=== PATIENT | female | born 1990 | race Caucasian/White ===

== ENCOUNTER 2016-12-01 20:37 | Emergency (ER) | payer OTHER ==
[2016-12-01] MEDS ORDERED: diphenhydrAMINE INJ 50MG/ML VIAL (J1200) As Ordered ONE (20:58)
[2016-12-01] MEDS ORDERED: dexameTHASONE 20 MG/5 ML VIAL (J1100) As Ordered ONE ×2 (20:58→21:02)
--- NOTE | 2016-12-01 23:04 | EDDOCDS ---
Nurse's Notes [facility] Name: Shanel Kumar Age: 26 yrs Sex: Female : 1990 Arrival Date: 12/01/2016 Time: 20:37 Bed 8 Private MD: NO PRIMARY PHYSICIAN, . Diagnosis: Allergy, unspecified Presentation: 12/01 20:45 Presenting complaint: Patient states: Eyes started itching around 3pm then started to ko2 swell. Then pt noticed hives on arms, neck and side of abdomen. Pt states her chest feels a little heavy a this time. Pt states she hasn't had any different food and hasn't changed laundry detergent. The only new thing she has used is a new body wash but has been using it for a week with no problem. Onset: The symptoms/episode began/occurred gradually. This patient has not experienced a previous allergic reaction. Anaphylaxis evaluation, the patient reports or I have noted the following symptoms which indicate a significant risk of anaphylaxis: lump in the throat which may suggest laryngeal edema. Adult Sepsis Screening: The patient does not have new or worsening altered mentation. Patient's respiratory rate is less than 22. Systolic blood pressure is greater than 100. Patient has a qSOFA score of 0- Negative Sepsis Screen. Suicide/Homicide risk assessment- the patient denies having any suicidal and/or homicidal ideations and does not present with any other emotional, behavioral or mental health complaints. Status: Patient is not a tax services manager or dependent. Transition of care: patient was not received from another setting of care. Care prior to arrival: Medications administered prior to arrival: Pt took two benadryl liquid tabs about 8 pm. 20:45 Acuity: ELLEN Level 3 ko2 20:45 Method Of Arrival: Walkin/Carried/Asstd ko2 Triage Assessment: 20:52 General: Appears in no apparent distress, Behavior is appropriate for age, cooperative. ko2 Pain: Denies pain. HIV screening NA for this visit Offered previously. The patient is triaged at the bedside. See Assessment in Nurses Notes section of ED record. Neurological: Level of Consciousness is awake, alert, Oriented to person, place, time. EENT: Eyes Lid(s) bilateral eye lids swollen. Cardiovascular: Rhythm is sinus rhythm No ectopy. Chest pain is denied. Respiratory: Airway is patent Respiratory effort is even, unlabored, Respiratory pattern is regular, Reports lump in throat feeling. Derm: Hives on right arm, left neck line and left side of abdomen. Musculoskeletal: Range of motion intact in all extremities. [facility]: 23:02 LMP N/A - control method ko2 Historical: - Allergies: No known drug Allergies; - Home Meds: 1. none - PMHx: none; - PSHx: none; - Social history: Smoking status: Patient uses tobacco products, heavy tobacco smoker. No barriers to communication noted, The patient speaks fluent Colombian, Speaks appropriately for age. - Family history: Not pertinent. - : The pt / caregiver states he / she is not on anticoagulants. Home medication list is obtained from the patient. - Exposure Risk Screening:: None identified. Screenin:07 Screening information is obtained from the patient. Fall risk: No risks identified. ko2 Assistance ADL's: requires no assistance with activities of daily living. Abuse/DV Screen: The patient / caregiver reports he/she is: not in a situation that causes fear, pain or injury. Nutritional screening: No deficits noted. Advance Directives: Currently, there is no health care proxy. There is no active DNR order. There is no living will. There is no Power of Readers' Advisory Service Librarian. home support is adequate. Assessment: 20:54 General: See triage assessment. ko2 22:06 General: pt states she can still feel the lump in her throat but can open her right eye ko2 lid more. No new hives noted. Respirations unlabored and even. no concerns at this time.. 22:49 General: Appears in no apparent distress, Behavior is cooperative. Pain: Denies pain. ko2 Neurological: Level of Consciousness is awake, alert. Respiratory: Airway is patent Respiratory effort is even, unlabored, Breath sounds are clear bilaterally. Musculoskeletal: Range of motion intact in all extremities. Vital Signs: 20:39 BP 144 / 86; Pulse 93; Resp 18 S; Temp 98.4(O); Pulse Ox 99% on R/A; Weight 97.52 kg gr2 (R); Height 5 ft. 4 in. (162.56 cm) (R); Pain 2/10; 22:51 BP 129 / 76; Pulse 68; Resp 18; Temp 97.2(TE); Pulse Ox 100% on R/A; rafaela 20:39 Body Mass Index 36.90 (97.52 kg, 162.56 cm) gr2 Vitals: 20:39 Log In Time: December 01, 2016 at 20:39. RN notified that patient meets Red Flag gr2 criteria. ED Course: 20:38 Patient visited by Barak Hartman. gr2 20:38 NO PRIMARY PHYSICIAN, . is Private Physician. gr2 20:38 Patient moved to Waiting gr2 20:41 Zeny Canales RN is Primary Nurse. cjh 20:41 Patient moved to 8 cj 20:42 Patient visited by Barak Hartman. gr2 20:45 Inserted saline lock: 20 gauge in left antecubital area. ko2 20:48 Dwayne Kenny DO is Attending Physician. cs11 20:48 Patient visited by Dwayne Kenny DO. cs11 20:50 Triage Initiated ko2 21:09 Patient visited by Zeny Canales RN. ko2 21:36 [facility] Payment Agreement was scanned into [employer] and attached to record. gb 22:04 Patient visited by Zeny Canales RN. ko2 22:49 Patient visited by Zeny Canales RN. ko2 22:49 Discontinued lock intact, bleeding controlled, pressure dressing applied, No ko2 redness/swelling at site. 22:51 Patient visited by Iveth Shelby PCA. rafaela 23:01 The patient / caregiver is instructed regarding the plan of care and ED course. ko2 23:01 No procedures done that require assistance. ko2 Administered Medications: 20:58 Not Given (..): diphenhydrAMINE 50 mg IVP once cs11 21:08 Drug: diphenhydrAMINE 25 mg [diphenhydramine 50 mg/mL injection solution (0.5 mL)] ko2 Route: IVP; Site: left antecubital; 21:09 Drug: Dexamethasone 12 mg [dexamethasone 4 mg/mL injection solution] Route: IV; Rate: ko2 bolus; Site: left antecubital; Order Results: There are currently no results for this order. Outcome: 22:49 Discharge ordered by Provider. cs11 23:01 Discharge Assessment: Patient awake, alert and oriented x 3. No cognitive and/or ko2 functional deficits noted. Patient verbalized understanding of disposition instructions. patient administered narcotics - no. The following High Risk Discharge criteria are identified: None. Discharged to home via medicaid cab. Condition: stable. Discharge instructions given to patient, Instructed on discharge instructions, follow up and referral plans. medication usage, Demonstrated understanding of instructions, medications, Pt was receptive of discharge instructions/ teaching. Prescriptions given X 1. No special radiology studies were completed. Property sent home with patient. 23:03 Patient left the ED. ko2 Signatures: Nathalie San, Reg Reg gb Iveth Shelby, SIERRA SLIVER MACHINE OPERATOR rafaela Lexi Hall,RN RN [facility] Dwayne Kenny DO DO cs11 Barak Hartman gr2 Zeny Canales,RN RN ko2 MTDD
--- NOTE | 2016-12-01 23:04 | EDDOCDS ---
Physician Documentation [facility] Name: Shanel Kumar Age: 26 yrs Sex: Female : 1990 Arrival Date: 12/01/2016 Time: 20:37 Bed 8 Private MD: NO PRIMARY PHYSICIAN, . Disposition: 12/01/16 22:49 Discharged to Home/Self Care. Impression: Allergy, unspecified. - Condition is Stable. - Prescriptions for Prednisone 20 mg Oral Tablet - take 3 tablets by ORAL route once daily for 3 days; 9 tablet. - Medication Reconciliation, Local Pharmacy Hours form. - Follow up: Private Physician; When: Call to arrange an appointment; Reason: Recheck today's complaints. - Problem is new. - Symptoms have improved. Historical: - Allergies: No known drug Allergies; - Home Meds: 1. none - PMHx: none; - PSHx: none; - Social history: Smoking status: Patient uses tobacco products, heavy tobacco smoker. No barriers to communication noted, The patient speaks fluent Trinidadian, Speaks appropriately for age. - Family history: Not pertinent. - : The pt / caregiver states he / she is not on anticoagulants. Home medication list is obtained from the patient. - Exposure Risk Screening:: None identified. CAR HOP: 12/01 23:02 LMP N/A - control method ko2 Vital Signs: 20:39 BP 144 / 86; Pulse 93; Resp 18 S; Temp 98.4(O); Pulse Ox 99% on R/A; Weight 97.52 kg / gr2 214.99 lbs (R); Height 5 ft. 4 in. (162.56 cm) (R); Pain 2/10; 22:51 BP 129 / 76; Pulse 68; Resp 18; Temp 97.2(TE); Pulse Ox 100% on R/A; rafaela 20:39 Body Mass Index 36.90 (97.52 kg, 162.56 cm) gr2 MDM: 20:53 IV Saline Lock ordered. cs11 20:53 diphenhydrAMINE 50 mg IVP once ordered. cs11 20:53 Dexamethasone 12 mg IV at bolus once ordered. cs11 20:58 diphenhydrAMINE 25 mg IVP once ordered. cs11 20:59 Financial registration complete. gb 21:36 [facility] Payment Agreement was scanned into [employer] and attached to record. gb Administered Medications: 20:58 Not Given (..): diphenhydrAMINE 50 mg IVP once cs11 21:08 Drug: diphenhydrAMINE 25 mg [diphenhydramine 50 mg/mL injection solution (0.5 mL)] ko2 Route: IVP; Site: left antecubital; 21:09 Drug: Dexamethasone 12 mg [dexamethasone 4 mg/mL injection solution] Route: IV; Rate: ko2 bolus; Site: left antecubital; Signatures: Nathalie San, Reg Reg Dwayne Nichols DO DO cs11 Zeny CanalesRN RN ko2 The chart was reviewed and I authenticate all verbal orders and agree with the evaluation and treatment provided.Attachments: 21:36 [facility] [place] Payment Agreement gb MTDD
--- NOTE | 2016-12-04 00:03 | EDDOCDS ---
Physician Documentation [facility] Name: Shanel Kumar Age: 26 yrs Sex: Female : 1990 Arrival Date: 12/01/2016 Time: 20:37 Bed 8 Private MD: NO PRIMARY PHYSICIAN, . Disposition: 12/01/16 22:49 Discharged to Home/Self Care. Impression: Allergy, unspecified. - Condition is Stable. - Prescriptions for Prednisone 20 mg Oral Tablet - take 3 tablets by ORAL route once daily for 3 days; 9 tablet. - Medication Reconciliation, Local Pharmacy Hours form. - Follow up: Private Physician; When: Call to arrange an appointment; Reason: Recheck today's complaints. - Problem is new. - Symptoms have improved. Historical: - Allergies: No known drug Allergies; - Home Meds: 1. none - PMHx: none; - PSHx: none; - Social history: Smoking status: Patient uses tobacco products, heavy tobacco smoker. No barriers to communication noted, The patient speaks fluent Montenegrin, Speaks appropriately for age. - Family history: Not pertinent. - : The pt / caregiver states he / she is not on anticoagulants. Home medication list is obtained from the patient. - Exposure Risk Screening:: None identified. 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 4 in. (162.56 cm) (R); Pain 2/10; 22:51 BP 129 / 76; Pulse 68; Resp 18; Temp 97.2(TE); Pulse Ox 100% on R/A; rafaela 20:39 Body Mass Index 36.90 (97.52 kg, 162.56 cm) gr2 MDM: 20:53 IV Saline Lock ordered. cs11 20:53 diphenhydrAMINE 50 mg IVP once ordered. cs11 20:53 Dexamethasone 12 mg IV at bolus once ordered. cs11 20:58 diphenhydrAMINE 25 mg IVP once ordered. cs11 20:59 Financial registration complete. gb 21:36 [facility] Payment Agreement was scanned into [employer] and attached to record. gb 12/02 12:29 T-Sheet-- Draft Copy was scanned into [employer] and attached to record. gb Administered Medications: 12/01 20:58 Not Given (..): diphenhydrAMINE 50 mg IVP once cs11 21:08 Drug: diphenhydrAMINE 25 mg [diphenhydramine 50 mg/mL injection solution (0.5 mL)] ko2 Route: IVP; Site: left antecubital; 21:09 Drug: Dexamethasone 12 mg [dexamethasone 4 mg/mL injection solution] Route: IV; Rate: ko2 bolus; Site: left antecubital; Signatures: Nathalie San, Reg Reg Dwayne Nihcols DO DO cs11 Zeny Canales RN RN ko2 The chart was reviewed and I authenticate all verbal orders and agree with the evaluation and treatment provided.Attachments: 21:36 [facility] [place] Payment Agreement gb 12/02 12:29 T-Sheet-- Draft Copy gb Chart Complete MTDD
--- NOTE | 2016-12-04 00:03 | EDDOCDS ---
Physician Documentation [facility] Name: Shanel Kumar Age: 26 yrs Sex: Female : 1990 Arrival Date: 12/01/2016 Time: 20:37 Bed 8 Private MD: NO PRIMARY PHYSICIAN, . Disposition: 12/01/16 22:49 Discharged to Home/Self Care. Impression: Allergy, unspecified. - Condition is Stable. - Prescriptions for Prednisone 20 mg Oral Tablet - take 3 tablets by ORAL route once daily for 3 days; 9 tablet. - Medication Reconciliation, Local Pharmacy Hours form. - Follow up: Private Physician; When: Call to arrange an appointment; Reason: Recheck today's complaints. - Problem is new. - Symptoms have improved. Historical: - Allergies: No known drug Allergies; - Home Meds: 1. none - PMHx: none; - PSHx: none; - Social history: Smoking status: Patient uses tobacco products, heavy tobacco smoker. No barriers to communication noted, The patient speaks fluent Filipino, Speaks appropriately for age. - Family history: Not pertinent. - : The pt / caregiver states he / she is not on anticoagulants. Home medication list is obtained from the patient. - Exposure Risk Screening:: None identified. COOKER PIE FILLING: 12/01 23:02 LMP N/A - control method ko2 Vital Signs: 20:39 BP 144 / 86; Pulse 93; Resp 18 S; Temp 98.4(O); Pulse Ox 99% on R/A; Weight 97.52 kg / gr2 214.99 lbs (R); Height 5 ft. 4 in. (162.56 cm) (R); Pain 2/10; 22:51 BP 129 / 76; Pulse 68; Resp 18; Temp 97.2(TE); Pulse Ox 100% on R/A; rafaela 20:39 Body Mass Index 36.90 (97.52 kg, 162.56 cm) gr2 MDM: 20:53 IV Saline Lock ordered. cs11 20:53 diphenhydrAMINE 50 mg IVP once ordered. cs11 20:53 Dexamethasone 12 mg IV at bolus once ordered. cs11 20:58 diphenhydrAMINE 25 mg IVP once ordered. cs11 20:59 Financial registration complete. gb 21:36 [facility] Payment Agreement was scanned into [employer] and attached to record. gb 12/02 12:29 T-Sheet-- Draft Copy was scanned into [employer] and attached to record. gb Administered Medications: 12/01 20:58 Not Given (..): diphenhydrAMINE 50 mg IVP once cs11 21:08 Drug: diphenhydrAMINE 25 mg [diphenhydramine 50 mg/mL injection solution (0.5 mL)] ko2 Route: IVP; Site: left antecubital; 21:09 Drug: Dexamethasone 12 mg [dexamethasone 4 mg/mL injection solution] Route: IV; Rate: ko2 bolus; Site: left antecubital; Signatures: Nathalie San, Reg Reg Dwayne Nichols DO DO cs11 Zeny Canales RN RN ko2 The chart was reviewed and I authenticate all verbal orders and agree with the evaluation and treatment provided.Attachments: 21:36 [facility] [place] Payment Agreement gb 12/02 12:29 T-Sheet-- Draft Copy gb Chart Complete MTDD
--- NOTE | 2016-12-04 00:03 | EDDOCDS ---
Nurse's Notes [facility] Name: Shanel Kumar Age: 26 yrs Sex: Female : 1990 Arrival Date: 12/01/2016 Time: 20:37 Bed 8 Private MD: NO PRIMARY PHYSICIAN, . Diagnosis: Allergy, unspecified Presentation: 12/01 20:45 Presenting complaint: Patient states: Eyes started itching around 3pm then started to ko2 swell. Then pt noticed hives on arms, neck and side of abdomen. Pt states her chest feels a little heavy a this time. Pt states she hasn't had any different food and hasn't changed laundry detergent. The only new thing she has used is a new body wash but has been using it for a week with no problem. Onset: The symptoms/episode began/occurred gradually. This patient has not experienced a previous allergic reaction. Anaphylaxis evaluation, the patient reports or I have noted the following symptoms which indicate a significant risk of anaphylaxis: lump in the throat which may suggest laryngeal edema. Adult Sepsis Screening: The patient does not have new or worsening altered mentation. Patient's respiratory rate is less than 22. Systolic blood pressure is greater than 100. Patient has a qSOFA score of 0- Negative Sepsis Screen. Suicide/Homicide risk assessment- the patient denies having any suicidal and/or homicidal ideations and does not present with any other emotional, behavioral or mental health complaints. Status: Patient is not a wind field service manager or dependent. Transition of care: patient was not received from another setting of care. Care prior to arrival: Medications administered prior to arrival: Pt took two benadryl liquid tabs about 8 pm. 20:45 Acuity: ELLEN Level 3 ko2 20:45 Method Of Arrival: Walkin/Carried/Asstd ko2 Triage Assessment: 20:52 General: Appears in no apparent distress, Behavior is appropriate for age, cooperative. ko2 Pain: Denies pain. HIV screening NA for this visit Offered previously. The patient is triaged at the bedside. See Assessment in Nurses Notes section of ED record. Neurological: Level of Consciousness is awake, alert, Oriented to person, place, time. EENT: Eyes Lid(s) bilateral eye lids swollen. Cardiovascular: Rhythm is sinus rhythm No ectopy. Chest pain is denied. Respiratory: Airway is patent Respiratory effort is even, unlabored, Respiratory pattern is regular, Reports lump in throat feeling. Derm: Hives on right arm, left neck line and left side of abdomen. Musculoskeletal: Range of motion intact in all extremities. [facility]: 23:02 LMP N/A - control method ko2 Historical: - Allergies: No known drug Allergies; - Home Meds: 1. none - PMHx: none; - PSHx: none; - Social history: Smoking status: Patient uses tobacco products, heavy tobacco smoker. No barriers to communication noted, The patient speaks fluent Bermudian, Speaks appropriately for age. - Family history: Not pertinent. - : The pt / caregiver states he / she is not on anticoagulants. Home medication list is obtained from the patient. - Exposure Risk Screening:: None identified. Screenin:07 Screening information is obtained from the patient. Fall risk: No risks identified. ko2 Assistance ADL's: requires no assistance with activities of daily living. Abuse/DV Screen: The patient / caregiver reports he/she is: not in a situation that causes fear, pain or injury. Nutritional screening: No deficits noted. Advance Directives: Currently, there is no health care proxy. There is no active DNR order. There is no living will. There is no Power of Integrative Medicine Physician. home support is adequate. Assessment: 20:54 General: See triage assessment. ko2 22:06 General: pt states she can still feel the lump in her throat but can open her right eye ko2 lid more. No new hives noted. Respirations unlabored and even. no concerns at this time.. 22:49 General: Appears in no apparent distress, Behavior is cooperative. Pain: Denies pain. ko2 Neurological: Level of Consciousness is awake, alert. Respiratory: Airway is patent Respiratory effort is even, unlabored, Breath sounds are clear bilaterally. Musculoskeletal: Range of motion intact in all extremities. Vital Signs: 20:39 BP 144 / 86; Pulse 93; Resp 18 S; Temp 98.4(O); Pulse Ox 99% on R/A; Weight 97.52 kg gr2 (R); Height 5 ft. 4 in. (162.56 cm) (R); Pain 2/10; 22:51 BP 129 / 76; Pulse 68; Resp 18; Temp 97.2(TE); Pulse Ox 100% on R/A; rafaela 20:39 Body Mass Index 36.90 (97.52 kg, 162.56 cm) gr2 Vitals: 20:39 Log In Time: December 01, 2016 at 20:39. RN notified that patient meets Red Flag gr2 criteria. ED Course: 20:38 Patient visited by Barak Hartman. gr2 20:38 NO PRIMARY PHYSICIAN, . is Private Physician. gr2 20:38 Patient moved to Waiting gr2 20:41 Zeny Canales RN is Primary Nurse. cjh 20:41 Patient moved to 8 cj 20:42 Patient visited by Barak Hartman. gr2 20:45 Inserted saline lock: 20 gauge in left antecubital area. ko2 20:48 Dwayne Kenny DO is Attending Physician. cs11 20:48 Patient visited by Dwayne Kenny DO. cs11 20:50 Triage Initiated ko2 21:09 Patient visited by Zeny Canales RN. ko2 21:36 [facility] Payment Agreement was scanned into [employer] and attached to record. gb 22:04 Patient visited by Zeny Canales RN. ko2 22:49 Patient visited by Zeny Canales RN. ko2 22:49 Discontinued lock intact, bleeding controlled, pressure dressing applied, No ko2 redness/swelling at site. 22:51 Patient visited by Iveth Shelby PCA. rafaela 23:01 The patient / caregiver is instructed regarding the plan of care and ED course. ko2 23:01 No procedures done that require assistance. ko2 12/02 12:29 T-Sheet-- Draft Copy was scanned into [employer] and attached to record. gb Administered Medications: 12/01 20:58 Not Given (..): diphenhydrAMINE 50 mg IVP once cs11 21:08 Drug: diphenhydrAMINE 25 mg [diphenhydramine 50 mg/mL injection solution (0.5 mL)] ko2 Route: IVP; Site: left antecubital; 21:09 Drug: Dexamethasone 12 mg [dexamethasone 4 mg/mL injection solution] Route: IV; Rate: ko2 bolus; Site: left antecubital; Order Results: There are currently no results for this order. Outcome: 22:49 Discharge ordered by Provider. cs11 23:01 Discharge Assessment: Patient awake, alert and oriented x 3. No cognitive and/or ko2 functional deficits noted. Patient verbalized understanding of disposition instructions. patient administered narcotics - no. The following High Risk Discharge criteria are identified: None. Discharged to home via medicaid cab. Condition: stable. Discharge instructions given to patient, Instructed on discharge instructions, follow up and referral plans. medication usage, Demonstrated understanding of instructions, medications, Pt was receptive of discharge instructions/ teaching. Prescriptions given X 1. No special radiology studies were completed. Property sent home with patient. 23:03 Patient left the ED. ko2 Signatures: Nathalie San, Reg Reg gb Iveth Shelby, WELDER PLASMA ARC WELDER PLASMA ARC rafaela Lexi Hall,RN RN [facility] Dwayne Kenny, DO cs11 Barak Hartman gr2 Zeny Canales,RN RN ko2 Chart Complete MTDD
== END 2016-12-01 23:03 | disposition home or self-care (01) ==
LOC: M ED 20:37
DX: R21 Rash and other nonspecific skin eruption (principal); F17.210 Nicotine dependence, cigarettes, uncomplicated
CPT/HCPCS: 96374; 96375; 99284; J1100; J1200

== ENCOUNTER 2016-12-26 08:57 | Emergency (ER) | payer OTHER ==
[2016-12-26] MEDS ORDERED: diphenhydrAMINE INJ 50MG/ML VIAL (J1200) As Ordered ONE (09:39)
--- NOTE | 2016-12-26 10:46 | EDDOCDS ---
Physician Documentation [facility] Name: Shanel Kumar Age: 26 yrs Sex: Female : 1990 Arrival Date: 12/26/2016 Time: 08:57 Bed PR Private MD: Disposition: 12/26/16 10:23 Discharged to Home/Self Care. Impression: Streptococcal pharyngitis, Urticaria. - Condition is Stable. - Discharge Instructions: Hives, Strep Throat. - Prescriptions for Keflex 500 mg Oral Capsule - take 1 capsule by ORAL route every 12 hours for 10 days; 20 capsule. Pepcid 20 mg Oral Tablet - take 1 tablet by ORAL route every 12 hours for 10 days; 20 tablet. Claritin 10 mg Oral Tablet - take 1 tablet by ORAL route once daily As needed; 30 tablet. - Medication Reconciliation, Local Pharmacy Hours form. - Follow up: Private Physician; When: As previously arranged; Reason: Further diagnostic work-up, Recheck today's complaints, Continuance of care. Follow up: Emergency Department; When: As needed; Reason: Trouble breathing, Worsening of conditions. - Problem is new. - Symptoms have improved. Historical: - Allergies: No known drug Allergies; - Home Meds: 1. Benadryl 50 mg Oral cap once daily 2. prednisone 20 mg Oral tab once daily - PMHx: none; - PSHx: none; - Social history: Smoking status: Patient uses tobacco products, heavy tobacco smoker. No barriers to communication noted, The patient speaks fluent Luxembourgish, Speaks appropriately for age. - Family history: Not pertinent. - : The pt / caregiver states he / she is not on anticoagulants. Home medication list is obtained from the patient. - Exposure Risk Screening:: None identified. WAITER/WAITRESS SECOND CLASS: 12/26 09:19 LMP 12/11/2016 jo3 Vital Signs: 09:12 BP 156 / 99; Pulse 110; Resp 18; Temp 97.5(O); Pulse Ox 98% on R/A; Weight 102.06 kg / jb5 225 lbs (R); Height 5 ft. 3 in. (160.02 cm) (R); Pain 9/10; 10:43 BP 142 / 89; Pulse 107; Resp 18; Temp 97.9(T); Pulse Ox 97% on R/A; Pain 0/10; ck1 09:12 Body Mass Index 39.86 (102.06 kg, 160.02 cm) jb5 09:12 irritation jb5 MDM: 09:34 Strep Screen, Nursing ordered. ar2 09:34 diphenhydrAMINE 50 mg IM once ordered. ar2 09:59 Financial registration complete. mm15 10:19 [facility] Payment Agreement was scanned into [employer] and attached to record. mm15 Administered Medications: 09:42 Drug: diphenhydrAMINE 50 mg [diphenhydramine 50 mg/mL injection solution (1 mL)] Route: ck1 IM; Site: right deltoid; Signatures: Sofiya CarringtonRN RN ck1 Flor Story RN RN jo3 Adalberto Rushing PA-C PA-C ar2 Samreen Denise mm15 The chart was reviewed and I authenticate all verbal orders and agree with the evaluation and treatment provided.Attachments: 10:19 [facility] Payment Agreement mm15 MTDD
--- NOTE | 2016-12-26 10:46 | EDDOCDS ---
Nurse's Notes [facility] Name: Shanel Kumar Age: 26 yrs Sex: Female : 1990 Arrival Date: 12/26/2016 Time: 08:57 Bed PR Private MD: Diagnosis: Streptococcal pharyngitis;Urticaria Presentation: 12/26 09:11 Presenting complaint: Patient states: Started having a reaction three weeks ago to jo3 unknown allergen. Was seen and treated here. Got better for three days until the prednisone wore off. Has been seen again at [facility] and is again on Prednisone and continues to break out. Also taking Benadryl. Has an appointment with the telephone information clerk January 23. Adult Sepsis Screening: The patient does not have new or worsening altered mentation. Patient's respiratory rate is less than 22. Systolic blood pressure is greater than 100. Patient has a qSOFA score of 0- Negative Sepsis Screen. Suicide/Homicide risk assessment- the patient denies having any suicidal and/or homicidal ideations and does not present with any other emotional, behavioral or mental health complaints. 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 Transition of care: patient was not received from another setting of care. 09:11 Acuity: ELLEN Level 3 jo3 09:11 Method Of Arrival: Walkin/Carried/Asstd jo3 Triage Assessment: 09:19 General: Appears uncomfortable, Behavior is appropriate for age, cooperative, pleasant. jo3 HIV screening NA for this visit Offered previously. Neurological: No deficits noted. Level of Consciousness is awake, alert, Oriented to person, place, time. Respiratory: Airway is patent Respiratory effort is even, unlabored. Derm: Skin is pink, warm & dry. Hive rash systemically. 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 Benadryl 50 mg Oral cap once daily 2. prednisone 20 mg Oral tab once daily - PMHx: none; - PSHx: none; - Social history: Smoking status: Patient uses tobacco products, heavy tobacco smoker. No barriers to communication noted, The patient speaks fluent Central African, Speaks appropriately for age. - Family history: Not pertinent. - : The pt / caregiver states he / she is not on anticoagulants. Home medication list is obtained from the patient. - Exposure Risk Screening:: None identified. Screenin:42 Screening information is obtained from the patient. Fall risk: No risks identified. ck1 Assistance ADL's: requires no assistance with activities of daily living. Abuse/DV Screen: The patient / caregiver reports he/she is: not in a situation that causes fear, pain or injury. Nutritional screening: No deficits noted. Advance Directives: Currently, there is no health care proxy. home support is adequate. Assessment: 09:42 General: Appears in no apparent distress, comfortable, Behavior is appropriate for age, ck1 cooperative. Pain: Location: generalized Pain currently is 8 out of 10 on a pain scale. Quality of pain is described as soreness. Respiratory: Airway is patent Respiratory effort is even, unlabored, Respiratory pattern is regular, symmetrical. Derm: Rash noted that is red, raised, on face, back, abdomen, right arm and left arm Reports itching. 10:44 General: Appears in no apparent distress, comfortable, Behavior is appropriate for age, ck1 cooperative. Pain: Denies pain. Neurological: Level of Consciousness is awake, alert, obeys commands, Oriented to person, place, time. Respiratory: Respiratory effort is unlabored, Respiratory pattern is regular, symmetrical. Derm: Rash noted that is red, raised, on left arm and right arm and abdomen and back and face Denies itching. Musculoskeletal: Circulation, motion, and sensation intact Range of motion intact in all extremities. Vital Signs: 09:12 BP 156 / 99; Pulse 110; Resp 18; Temp 97.5(O); Pulse Ox 98% on R/A; Weight 102.06 kg jb5 (R); Height 5 ft. 3 in. (160.02 cm) (R); Pain 9/10; 10:43 BP 142 / 89; Pulse 107; Resp 18; Temp 97.9(T); Pulse Ox 97% on R/A; Pain 0/10; ck1 09:12 Body Mass Index 39.86 (102.06 kg, 160.02 cm) jb5 09:12 irritation jb5 Vitals: 09:19 Log In Time: December 26, 2016 at 08:56. jo3 09:42 Strep Screen is obtained and tested: Positive. ck1 ED Course: 08:59 Patient visited by Samreen Denise. mm15 08:59 Patient moved to Waiting mm15 09:09 Patient moved to Triage 1 jo3 09:13 Patient visited by Renetta Estrada PCA. jb5 09:16 Triage Initiated jo3 09:22 Patient visited by Flor Story RN. jo3 09:24 Ad[facility]ushing [facility]. ar2 09:24 Jose Velarde MD is Attending Physician. ar2 09:24 Patient visited by Adalberto Rushing PA-C. ar2 09:42 Patient visited by Sofiya Carrington RN. ck1 09:42 The patient / caregiver is instructed regarding the plan of care and ED course. ck1 09:45 Patient moved to PR ck1 10:10 Patient visited by Renetta Estrada PCA. jb5 10:19 [facility] Payment Agreement was scanned into [employer] and attached to record. mm15 10:44 No IV's were initiated during this patient's visit. No procedures done that require ck1 assistance. Administered Medications: 09:42 Drug: diphenhydrAMINE 50 mg [diphenhydramine 50 mg/mL injection solution (1 mL)] Route: ck1 IM; Site: right deltoid; Order Results: There are currently no results for this order. Outcome: 10:23 Discharge ordered by Provider. ar2 10:44 Discharge Assessment: Patient awake, alert and oriented x 3. No cognitive and/or ck1 functional deficits noted. Patient verbalized understanding of disposition instructions. patient administered narcotics - no. The following High Risk Discharge criteria are identified: None. Discharged to home ambulatory, with friend. Condition: improved. Discharge instructions given to patient, Instructed on discharge instructions, follow up and referral plans. medication usage, Demonstrated understanding of instructions, medications, Pt was receptive of discharge instructions/ teaching. Prescriptions given X 3. No special radiology studies were completed. Property :Personal belongings accompany Pt. 10:45 Patient left the ED. ck1 Signatures: Sofiya Carrington RN RN ck1 Renetta Estrada PCA ANCHOR TACK PULLER jb5 Flor Story RN RN jo3 Adalberto Rushing PA-C PA-C ar2 Samreen Denise mm15 MTDD
--- NOTE | 2016-12-28 11:46 | EDDOCDS ---
Nurse's Notes [facility] Name: Shanel Kumar Age: 26 yrs Sex: Female : 1990 Arrival Date: 12/26/2016 Time: 08:57 Bed PR Private MD: Diagnosis: Streptococcal pharyngitis;Urticaria Presentation: 12/26 09:11 Presenting complaint: Patient states: Started having a reaction three weeks ago to jo3 unknown allergen. Was seen and treated here. Got better for three days until the prednisone wore off. Has been seen again at [facility] and is again on Prednisone and continues to break out. Also taking Benadryl. Has an appointment with the coach professional athletes January 23. Adult Sepsis Screening: The patient does not have new or worsening altered mentation. Patient's respiratory rate is less than 22. Systolic blood pressure is greater than 100. Patient has a qSOFA score of 0- Negative Sepsis Screen. Suicide/Homicide risk assessment- the patient denies having any suicidal and/or homicidal ideations and does not present with any other emotional, behavioral or mental health complaints. 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 Transition of care: patient was not received from another setting of care. 09:11 Acuity: ELLEN Level 3 jo3 09:11 Method Of Arrival: Walkin/Carried/Asstd jo3 Triage Assessment: 09:19 General: Appears uncomfortable, Behavior is appropriate for age, cooperative, pleasant. jo3 HIV screening NA for this visit Offered previously. Neurological: No deficits noted. Level of Consciousness is awake, alert, Oriented to person, place, time. Respiratory: Airway is patent Respiratory effort is even, unlabored. Derm: Skin is pink, warm & dry. Hive rash systemically. 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 Benadryl 50 mg Oral cap once daily 2. prednisone 20 mg Oral tab once daily - PMHx: none; - PSHx: none; - Social history: Smoking status: Patient uses tobacco products, heavy tobacco smoker. No barriers to communication noted, The patient speaks fluent Surinamese, Speaks appropriately for age. - Family history: Not pertinent. - : The pt / caregiver states he / she is not on anticoagulants. Home medication list is obtained from the patient. - Exposure Risk Screening:: None identified. Screenin:42 Screening information is obtained from the patient. Fall risk: No risks identified. ck1 Assistance ADL's: requires no assistance with activities of daily living. Abuse/DV Screen: The patient / caregiver reports he/she is: not in a situation that causes fear, pain or injury. Nutritional screening: No deficits noted. Advance Directives: Currently, there is no health care proxy. home support is adequate. Assessment: 09:42 General: Appears in no apparent distress, comfortable, Behavior is appropriate for age, ck1 cooperative. Pain: Location: generalized Pain currently is 8 out of 10 on a pain scale. Quality of pain is described as soreness. Respiratory: Airway is patent Respiratory effort is even, unlabored, Respiratory pattern is regular, symmetrical. Derm: Rash noted that is red, raised, on face, back, abdomen, right arm and left arm Reports itching. 10:44 General: Appears in no apparent distress, comfortable, Behavior is appropriate for age, ck1 cooperative. Pain: Denies pain. Neurological: Level of Consciousness is awake, alert, obeys commands, Oriented to person, place, time. Respiratory: Respiratory effort is unlabored, Respiratory pattern is regular, symmetrical. Derm: Rash noted that is red, raised, on left arm and right arm and abdomen and back and face Denies itching. Musculoskeletal: Circulation, motion, and sensation intact Range of motion intact in all extremities. Vital Signs: 09:12 BP 156 / 99; Pulse 110; Resp 18; Temp 97.5(O); Pulse Ox 98% on R/A; Weight 102.06 kg jb5 (R); Height 5 ft. 3 in. (160.02 cm) (R); Pain 9/10; 10:43 BP 142 / 89; Pulse 107; Resp 18; Temp 97.9(T); Pulse Ox 97% on R/A; Pain 0/10; ck1 09:12 Body Mass Index 39.86 (102.06 kg, 160.02 cm) jb5 09:12 irritation jb5 Vitals: 09:19 Log In Time: December 26, 2016 at 08:56. jo3 09:42 Strep Screen is obtained and tested: Positive. ck1 ED Course: 08:59 Patient visited by Samreen Denise. mm15 08:59 Patient moved to Waiting mm15 09:09 Patient moved to Triage 1 jo3 09:13 Patient visited by Renetta Estrada PCA. jb5 09:16 Triage Initiated jo3 09:22 Patient visited by Flor Story RN. jo3 09:24 Adalberto Rushing PA-C [facility]. ar2 09:24 Jose Velarde MD is Attending Physician. ar2 09:24 Patient visited by Adalberto Rushing PA-C. ar2 09:42 Patient visited by Sofiya Carrington RN. ck1 09:42 The patient / caregiver is instructed regarding the plan of care and ED course. ck1 09:45 Patient moved to PR ck1 10:10 Patient visited by Renetta Estrada PCA. jb5 10:19 [facility] Payment Agreement was scanned into [employer] and attached to record. mm15 10:44 No IV's were initiated during this patient's visit. No procedures done that require ck1 assistance. 12/27 12:34 T-Sheet-- Draft Copy was scanned into [employer] and attached to record. gb Administered Medications: 12/26 09:42 Drug: diphenhydrAMINE 50 mg [diphenhydramine 50 mg/mL injection solution (1 mL)] Route: ck1 IM; Site: right deltoid; Order Results: There are currently no results for this order. Outcome: 10:23 Discharge ordered by Provider. ar2 10:44 Discharge Assessment: Patient awake, alert and oriented x 3. No cognitive and/or ck1 functional deficits noted. Patient verbalized understanding of disposition instructions. patient administered narcotics - no. The following High Risk Discharge criteria are identified: None. Discharged to home ambulatory, with friend. Condition: improved. Discharge instructions given to patient, Instructed on discharge instructions, follow up and referral plans. medication usage, Demonstrated understanding of instructions, medications, Pt was receptive of discharge instructions/ teaching. Prescriptions given X 3. No special radiology studies were completed. Property :Personal belongings accompany Pt. 10:45 Patient left the ED. ck1 Signatures: Nathalie San, Reg Reg gb Sofiya Carrington RN RN ck1 Renetta Estrada PCA LASER PRINTING OPERATOR jb Flor Story RN RN jo3 Robertshaw, Aaron, VIVIAN PASharonC ar2 Samreen Denise mm15 Chart Complete MTDD
--- NOTE | 2016-12-28 11:46 | EDDOCDS ---
Physician Documentation [facility] Name: Shanel Kumar Age: 26 yrs Sex: Female : 1990 Arrival Date: 12/26/2016 Time: 08:57 Bed PR Private MD: Disposition: 12/26/16 10:23 Discharged to Home/Self Care. Impression: Streptococcal pharyngitis, Urticaria. - Condition is Stable. - Discharge Instructions: Hives, Strep Throat. - Prescriptions for Keflex 500 mg Oral Capsule - take 1 capsule by ORAL route every 12 hours for 10 days; 20 capsule. Pepcid 20 mg Oral Tablet - take 1 tablet by ORAL route every 12 hours for 10 days; 20 tablet. Claritin 10 mg Oral Tablet - take 1 tablet by ORAL route once daily As needed; 30 tablet. - Medication Reconciliation, Local Pharmacy Hours form. - Follow up: Private Physician; When: As previously arranged; Reason: Further diagnostic work-up, Recheck today's complaints, Continuance of care. Follow up: Emergency Department; When: As needed; Reason: Trouble breathing, Worsening of conditions. - Problem is new. - Symptoms have improved. Historical: - Allergies: No known drug Allergies; - Home Meds: 1. Benadryl 50 mg Oral cap once daily 2. prednisone 20 mg Oral tab once daily - PMHx: none; - PSHx: none; - Social history: Smoking status: Patient uses tobacco products, heavy tobacco smoker. No barriers to communication noted, The patient speaks fluent Bengali, Speaks appropriately for age. - Family history: Not pertinent. - : The pt / caregiver states he / she is not on anticoagulants. Home medication list is obtained from the patient. - Exposure Risk Screening:: None identified. 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 3 in. (160.02 cm) (R); Pain 9/10; 10:43 BP 142 / 89; Pulse 107; Resp 18; Temp 97.9(T); Pulse Ox 97% on R/A; Pain 0/10; ck1 09:12 Body Mass Index 39.86 (102.06 kg, 160.02 cm) jb5 09:12 irritation jb5 MDM: 09:34 Strep Screen, Nursing ordered. ar2 09:34 diphenhydrAMINE 50 mg IM once ordered. ar2 09:59 Financial registration complete. mm15 10:19 [facility] Payment Agreement was scanned into [employer] and attached to record. mm15 12/27 12:34 T-Sheet-- Draft Copy was scanned into [employer] and attached to record. gb Administered Medications: 12/26 09:42 Drug: diphenhydrAMINE 50 mg [diphenhydramine 50 mg/mL injection solution (1 mL)] Route: ck1 IM; Site: right deltoid; Signatures: Nathalie San, Reg Reg gb Sofiya Carrington,RN RN ck1 Flor Story RN RN jo3 Adalberto Rushing PA-C PAJohn ar2 Samreen Denise mm15 The chart was reviewed and I authenticate all verbal orders and agree with the evaluation and treatment provided.Attachments: 10:19 [facility] Payment Agreement mm15 12/27 12:34 T-Sheet-- Draft Copy gb Chart Complete MTDD
--- NOTE | 2016-12-28 11:46 | EDDOCDS ---
Physician Documentation [facility] Name: Shanel Kumar Age: 26 yrs Sex: Female : 1990 Arrival Date: 12/26/2016 Time: 08:57 Bed PR Private MD: Disposition: 12/26/16 10:23 Discharged to Home/Self Care. Impression: Streptococcal pharyngitis, Urticaria. - Condition is Stable. - Discharge Instructions: Hives, Strep Throat. - Prescriptions for Keflex 500 mg Oral Capsule - take 1 capsule by ORAL route every 12 hours for 10 days; 20 capsule. Pepcid 20 mg Oral Tablet - take 1 tablet by ORAL route every 12 hours for 10 days; 20 tablet. Claritin 10 mg Oral Tablet - take 1 tablet by ORAL route once daily As needed; 30 tablet. - Medication Reconciliation, Local Pharmacy Hours form. - Follow up: Private Physician; When: As previously arranged; Reason: Further diagnostic work-up, Recheck today's complaints, Continuance of care. Follow up: Emergency Department; When: As needed; Reason: Trouble breathing, Worsening of conditions. - Problem is new. - Symptoms have improved. Historical: - Allergies: No known drug Allergies; - Home Meds: 1. Benadryl 50 mg Oral cap once daily 2. prednisone 20 mg Oral tab once daily - PMHx: none; - PSHx: none; - Social history: Smoking status: Patient uses tobacco products, heavy tobacco smoker. No barriers to communication noted, The patient speaks fluent Sami, Speaks appropriately for age. - Family history: Not pertinent. - : The pt / caregiver states he / she is not on anticoagulants. Home medication list is obtained from the patient. - Exposure Risk Screening:: None identified. 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 3 in. (160.02 cm) (R); Pain 9/10; 10:43 BP 142 / 89; Pulse 107; Resp 18; Temp 97.9(T); Pulse Ox 97% on R/A; Pain 0/10; ck1 09:12 Body Mass Index 39.86 (102.06 kg, 160.02 cm) jb5 09:12 irritation jb5 MDM: 09:34 Strep Screen, Nursing ordered. ar2 09:34 diphenhydrAMINE 50 mg IM once ordered. ar2 09:59 Financial registration complete. mm15 10:19 [facility] Payment Agreement was scanned into [employer] and attached to record. mm15 12/27 12:34 T-Sheet-- Draft Copy was scanned into [employer] and attached to record. gb Administered Medications: 12/26 09:42 Drug: diphenhydrAMINE 50 mg [diphenhydramine 50 mg/mL injection solution (1 mL)] Route: ck1 IM; Site: right deltoid; Signatures: Nathalie San, Reg Reg gb Sofiya Carrington,RN RN ck1 Flor Story RN RN jo3 Adalberto Rushing PA-C PAJohn ar2 Samreen Denise mm15 The chart was reviewed and I authenticate all verbal orders and agree with the evaluation and treatment provided.Attachments: 10:19 [facility] Payment Agreement mm15 12/27 12:34 T-Sheet-- Draft Copy gb Chart Complete MTDD
== END 2016-12-26 10:45 | disposition home or self-care (01) ==
LOC: M ED 08:57
DX: R21 Rash and other nonspecific skin eruption (principal); F17.210 Nicotine dependence, cigarettes, uncomplicated; Z79.899 Other long term (current) drug therapy; Z79.52 Long term (current) use of systemic steroids
CPT/HCPCS: 87880; 96372; 99283; J1200

== ENCOUNTER → 2017-04-22 | Outpatient (REF) | payer OTHER | LOC: M LAB REF 13:09 | PROVIDERS: ATTEND Advanced Practice Midwife | DX: Z11.3 Encounter for screening for infections with a predominantly sexual mode of transmission (principal) ==

== ENCOUNTER → 2017-06-19 | Outpatient (REF) | payer OTHER, MEDICAID ==
[~2017-06-19] MED LIST: CIPR-249 PO
== END ==
LOC: M LAB REF 17:27
PROVIDERS: ATTEND Advanced Practice Midwife
DX: N76.0 Acute vaginitis (principal)

== ENCOUNTER → 2017-06-19 | Outpatient (REF) | payer OTHER | LOC: M LAB REF 17:25 | PROVIDERS: ATTEND Advanced Practice Midwife | DX: R30.0 Dysuria (principal) ==

== ENCOUNTER 2017-08-09 23:21 | Emergency (ER) | payer MEDICAID, OTHER ==
[~2017-08-09] VITALS: Ht 162.6 cm; Wt 100.0 kg
[2017-08-10] MEDS ORDERED: TETANUS/DIPHTHERIA TOX ADSORB ADULT 0.5ML SYR/VIAL (90714) IM ONE (00:45)
[2017-08-10] MEDS ORDERED: DERMABOND TOPICAL SKIN ADHESIVE TOP ONE (01:00)
[2017-08-10 01:14] VITALS: BP 144/87
== END 2017-08-10 01:37 | disposition home or self-care (01) ==
LOC: M ED 23:21
DX: S61.419A Laceration without foreign body of unspecified hand, initial encounter (principal); W50.0XXA Accidental hit or strike by another person, initial encounter; Y92.89 Other specified places as the place of occurrence of the external cause; Y93.89 Activity, other specified; Y99.9 Unspecified external cause status; F17.200 Nicotine dependence, unspecified, uncomplicated

== ENCOUNTER 2017-09-14 19:11 | Emergency (ER) | payer OTHER ==
[~2017-09-14] VITALS: Ht 162.6 cm; Wt 90.9 kg
[2017-09-14 19:11] VITALS: BP 188/112
[2017-09-14 20:06] LABS: MICROSCOPIC INDICATED? MAN YES (NO)
[2017-09-14 20:09] LABS: RBC, URINE 15-20 /hpf (0-3); SQUAMOUS EPITHELIAL CELL URINE SMALL AMOUNT /hpf (SMALL AMT); WBC, URINE TNTC /hpf (0-3)
[2017-09-14 20:10] LABS: BACTERIA, URINE LARGE AMOUNT; HYALINE CAST, URINE NONE SEEN /lpf (0-1); MICROSCOPIC EXAM PERFORMED
[2017-09-14] MEDS ORDERED: PERCOCET 5MG/325MG TAB PO ONE (21:45)
[2017-09-14] MEDS ORDERED: CIPROFLOXACIN 500 MG TAB PO ONE (21:45)
[2017-09-14] MEDS ORDERED: CIPR-249 PO (21:48)
== END 2017-09-14 22:05 | disposition home or self-care (01) ==
LOC: M ED 19:11
DX: N39.0 Urinary tract infection, site not specified (principal); Z72.0 Tobacco use

== ENCOUNTER → 2018-01-23 | Outpatient (REF) | payer OTHER | LOC: M SFHCLERA 14:59 | DX: S71.102A Unspecified open wound, left thigh, initial encounter (principal); X58.XXXA Exposure to other specified factors, initial encounter; Y92.9 Unspecified place or not applicable; Y93.9 Activity, unspecified ==

== ENCOUNTER 2018-02-25 07:23 | Emergency (ER) | payer OTHER ==
[2018-02-25] MEDS: AUGMENTIN 875 MG TAB PO (08:30)
[2018-02-25] MEDS: NORCO, ANEXSIA 5/325MG TABLET (HYDROcodone/ACETAMINOPHEN) PO (08:30)
== END 2018-02-25 08:37 | disposition home or self-care (01) ==
LOC: M ED 07:23
DX: K02.9 Dental caries, unspecified (principal); F17.200 Nicotine dependence, unspecified, uncomplicated; Z79.899 Other long term (current) drug therapy
CPT/HCPCS: 99283

== ENCOUNTER 2018-06-21 23:05 | Emergency (ER) | payer MEDICAID, OTHER ==
[2018-06-21 23:47] LABS: BASO % 0.3 % (0.0-1.0); EOS # 0.2 10^3/uL (0.0-0.50); EOS % 1.3 % (0.0-3.0); HEMATOCRIT 35.6 % (36.0-47.0); HEMOGLOBIN 12.2 g/dl (12.0-15.5); IMMATURE GRANULOCYTE % 0.5 % (0-3.0); LYMPH # 2.9 10^3/uL (1.5-6.5); LYMPH % 24.7 % (24.0-44.0); MEAN CORPUSCULAR HEMOGLOBIN 31.9 pg (27.0-33.0); MEAN CORPUSCULAR HGB CONC 34.3 g/dl (32.0-36.5); MONO # 0.6 10^3/uL (0.0-0.8); MONO % 5.3 % (0.0-5.0); NEUTROPHILS # 8.1 10^3/uL (1.8-7.7); NEUTROPHILS % 67.9 % (36.0-66.0); PLATELET COUNT, AUTOMATED 298 10^3/uL (150-450); RED BLOOD COUNT 3.83 10^6/uL (4.00-5.40); RED CELL DISTRIBUTION WIDTH 12.4 % (11.5-14.5); WHITE BLOOD COUNT 11.9 10^3/uL (4.0-10.0)
[2018-06-21 23:48] LABS: CONTROL LINE UCG INT CTR LINE PRESENT; URINE PREG TEST POSITIVE (NEGATIVE)
[2018-06-22 00:06] LABS: KETONE, URINE AUTO RFX NEGATIVE (NEGATIVE); LEUKOCYTE ESTERASE UR AUTO RFX NEGATIVE (NEGATIVE); MUCUS, URINE RFX SMALL (NEGATIVE); NITRITE, URINE AUTO RFX NEGATIVE (NEGATIVE); RBC, URINE AUTO RFX 4 /HPF (0-3); SPECIFIC GRAVITY UR AUTO RFX 1.032 (1.002-1.035); SQUAM EPITHELIAL CELL UR AURFX 7 /HPF (0-6); WBC, URINE AUTO RFX 3 /HPF (0-3)
[2018-06-22 00:24] LABS: HCG, SERUM QUANTITATIVE 925 MIU/ML
[2018-06-22] MEDS: ACETAMINOPHEN 325 MG TAB PO (00:45)
== END 2018-06-22 01:18 | disposition left against medical advice (07) ==
LOC: M ED 23:05
DX: N93.9 Abnormal uterine and vaginal bleeding, unspecified (principal)
CPT/HCPCS: 84703

== ENCOUNTER 2018-11-14 22:07 | Emergency (ER) | payer OTHER ==
[~2018-11-14] VITALS: Ht 160 cm; Wt 100.0 kg
[2018-11-14 22:07] VITALS: BP 131/90
[~2018-11-14 22:07] MED LIST changes: +ANBE20GE TOP; +AUGM875T28 PO; +IBUP80TA PO; +NORCOTAB PO; +PRENTAB55 PO; +TYLE500T78 PO
[2018-11-14] MEDS ORDERED: MELO15TA28 (22:15)
[2018-11-15] MEDS ORDERED: AUGM875T28 PO (00:07)
[2018-11-15] MEDS ORDERED: IBUP80TA PO (00:07)
[2018-11-15] MEDS ORDERED: AUGMENTIN 875 MG TAB PO ONE (00:15)
[2018-11-15] MEDS ORDERED: ACETAMINOPHEN 325 MG TAB PO ONE (00:15)
[2018-11-15] MEDS ORDERED: IBUPROFEN 600 MG TAB PO ONE (00:15)
== END 2018-11-15 00:28 | disposition home or self-care (01) ==
LOC: M ED 22:07
DX: K04.7 Periapical abscess without sinus (principal); K02.9 Dental caries, unspecified; F17.200 Nicotine dependence, unspecified, uncomplicated; Z79.899 Other long term (current) drug therapy

== ENCOUNTER → 2018-12-24 | Outpatient (REF) | payer OTHER ==
[~2018-12-24] MED LIST changes: +MELO15TA28
[2018-12-24 16:26] LABS: INFLUENZA A AMPLIFICATION NEGATIVE (NEGATIVE); INFLUENZA B AMPLIFICATION NEGATIVE (NEGATIVE)
== END ==
LOC: M LAB REF 15:20
PROVIDERS: ATTEND Physician Assistant
DX: J11.1 Influenza due to unidentified influenza virus with other respiratory manifestations (principal)

== ENCOUNTER 2019-03-08 23:19 | Emergency (ER) | payer OTHER ==
[~2019-03-08] VITALS: Ht 157.5 cm; Wt 97.7 kg
[2019-03-08 23:19] VITALS: BP 155/101
[~2019-03-08 23:19] MED LIST changes: +HYDR-3715 PO; -NORCOTAB PO
[2019-03-09] MEDS ORDERED: diphenhydrAMINE 25 MG CAP As Ordered ONE (00:39)
[2019-03-09] MEDS ORDERED: diphenhydrAMINE 50 MG CAP PO ONE (00:45)
[2019-03-09] MEDS ORDERED: predniSONE 20 MG TAB PO ONE (00:45)
[2019-03-09] MEDS ORDERED: FAMOTIDINE 20 MG TAB PO ONE (00:45)
== END 2019-03-09 01:08 | disposition left against medical advice (07) ==
LOC: M ED 23:19
DX: L50.0 Allergic urticaria (principal); M54.89 Other dorsalgia; F17.210 Nicotine dependence, cigarettes, uncomplicated; Z79.899 Other long term (current) drug therapy

== ENCOUNTER → 2020-06-30 | Outpatient (REF) | payer OTHER ==
[2020-06-30 16:47] LABS: CHLAMYDIA DNA AMPLIFICATION NEGATIVE (NEGATIVE); GC DNA AMPLIFICATION NEGATIVE (NEGATIVE)
== END ==
LOC: M LAB REF 14:04
PROVIDERS: ATTEND Nurse Practitioner Women's Health
DX: Z11.3 Encounter for screening for infections with a predominantly sexual mode of transmission (principal)